=== PATIENT | female | born 1975 | race Caucasian/White ===

== ENCOUNTER 2018-10-18 11:18 | Emergency (ER) | payer SELFPAY, OTHER ==
[2018-10-18] MEDS: IBUPROFEN 600 MG TAB PO (12:07)
== END 2018-10-18 13:53 | disposition home or self-care (01) ==
LOC: FTE 11:18
DX: S92.902A Unspecified fracture of left foot, initial encounter for closed fracture (principal); X50.1XXA Overexertion from prolonged static or awkward postures, initial encounter; Y92.9 Unspecified place or not applicable
CPT/HCPCS: 73610; 73630-LT; 99283-25